=== PATIENT | female | born 1995 | race Caucasian/White ===

== ENCOUNTER 2020-08-14 16:30 | Emergency (ER) | payer OTHER ==
[~2020-08-14] VITALS: Ht 160 cm; Wt 68.0 kg
[2020-08-14 17:01] VITALS: Ht 160 cm; Wt 68.0 kg
[2020-08-14 19:24] VITALS: BP 134/91
== END 2020-08-14 19:24 | disposition home or self-care (01) ==
LOC: ED 16:30
DX: S51.811A Laceration without foreign body of right forearm, initial encounter (principal); S50.11XA Contusion of right forearm, initial encounter; W54.0XXA Bitten by dog, initial encounter; Y93.89 Activity, other specified; Y92.89 Other specified places as the place of occurrence of the external cause; Y99.8 Other external cause status
CPT/HCPCS: 90715; J2001

== ENCOUNTER 2020-08-16 11:46 | Emergency (ER) | payer OTHER ==
[~2020-08-16] VITALS: Ht 160 cm; Wt 73.0 kg
[2020-08-16 11:53] VITALS: BP 136/85; Ht 160 cm; Wt 73.0 kg
== END 2020-08-16 14:08 | disposition home or self-care (01) ==
LOC: ED 11:46
DX: S51.811D Laceration without foreign body of right forearm, subsequent encounter (principal); W54.0XXD Bitten by dog, subsequent encounter

== ENCOUNTER 2020-08-21 12:12 | Emergency (ER) | payer OTHER ==
[~2020-08-21] VITALS: Ht 160 cm; Wt 73.9 kg
[2020-08-21 12:27] VITALS: BP 148/92; Ht 160 cm; Wt 73.9 kg
== END 2020-08-21 12:42 | disposition home or self-care (01) ==
LOC: ED 12:12
DX: S51.811D Laceration without foreign body of right forearm, subsequent encounter (principal); Z88.1 Allergy status to other antibiotic agents; W54.0XXD Bitten by dog, subsequent encounter

== ENCOUNTER 2020-08-26 15:26 | Emergency (ER) | payer OTHER ==
[~2020-08-26] VITALS: Ht 160 cm; Wt 72.6 kg
[2020-08-26 15:49] VITALS: BP 157/104; Ht 160 cm; Wt 72.6 kg
== END 2020-08-26 16:55 | disposition home or self-care (01) ==
LOC: ED 15:26
DX: S51.811D Laceration without foreign body of right forearm, subsequent encounter (principal); Z88.1 Allergy status to other antibiotic agents; W54.0XXD Bitten by dog, subsequent encounter